=== PATIENT | male | born 1990 | race Caucasian/White ===

== ENCOUNTER → 2020-12-15 | Outpatient (REF) | payer OTHER ==
[2020-12-15 14:07] LABS: ALBUMIN 4.5 GM/DL (3.2-5.2); ALT/SGPT 21 U/L (12-78); BILIRUBIN,TOTAL 0.5 MG/DL (0.2-1.0); BLOOD UREA NITROGEN 11 MG/DL (7-18); CALCIUM LEVEL 9.8 MG/DL (8.5-10.1); CARBON DIOXIDE LEVEL 27 MEQ/L (21-32); CHLORIDE LEVEL 105 MEQ/L (98-107); CHOLESTEROL LEVEL 173 MG/DL (<200); CHOLESTEROL RISK RATIO 4.219 (<5); CREATININE FOR GFR 0.96 MG/DL (0.70-1.30); GLOMERULAR FILTRATION RATE > 60.0 (>60); GLUCOSE, FASTING 99 MG/DL (70-100); HDL CHOLESTEROL 41 MG/DL (>40); LDL CHOLESTEROL 115 MG/DL (<100); NON-HDL-C 132 MG/DL; POTASSIUM SERUM 4.4 MEQ/L (3.5-5.1); SODIUM LEVEL 137 MEQ/L (136-145); TOTAL PROTEIN 7.9 GM/DL (6.4-8.2); TRIGLYCERIDES LEVEL 86 MG/DL (<150)
[2020-12-15 14:24] LABS: HEPATITIS B SURFACE ANTIGEN NEGATIVE (NEGATIVE)
[2020-12-16 23:07] LABS: %CD4 Pos Lymphs 50.6 % (30.8-58.5); ABS Eosinophils 0.2 x10E3/uL (0.0-0.4); ABS Lymphs 1.5 x10E3/uL (0.7-3.1); ABS Monocytes 0.3 x10E3/uL (0.1-0.9); ABS Neutophils 1.7 x10E3/uL (1.4-7.0); Abs CD4 Helper 759 /uL (359-1519); Abs CD8 Suppres 510 /uL (109-897); CD4/CD8 Ratio 1.49 (0.92-3.72); Eosinophils 6 % (Not Estab.); HCT 42.6 % (37.5-51.0); HEPATITIS A IgG TOTAL Positive (Negative); HEPATITIS B CORE ANTIBODY IGG Negative (Negative); HGB 14.3 g/dL (13.0-17.7); HIV-1 RNA PCR QUANT 2 LC550285 <20 copies/mL (.); Immature Grans 0 % (Not Estab.); Lymphocytes 40 % (Not Estab.); MCH 31.2 pg (26.6-33.0); MCHC 33.6 g/dL (31.5-35.7); MCV 93 fL (79-97); Monocytes 9 % (Not Estab.); Neutrophils 45 % (Not Estab.); Platelets 281 x10E3/uL (150-450); RBC 4.58 x10E6/uL (4.14-5.80); RDW 11.9 % (11.6-15.4); WBC 3.8 x10E3/uL (3.4-10.8)
== END ==
LOC: M SFHCPLAZ 11:30
PROVIDERS: ATTEND Internal Medicine Infectious Disease
DX: B20 Human immunodeficiency virus [HIV] disease (principal); Z13.220 Encounter for screening for lipoid disorders
CPT/HCPCS: 36415; 80053; 80061; 86317; 86360; 86704; 86708; 86803; 87340; 87536; G0463

== ENCOUNTER → 2021-06-06 | Outpatient (CLI) | payer OTHER ==
[2021-06-06 16:21] LABS: ALBUMIN 4.3 GM/DL (3.2-5.2); ALT/SGPT 26 U/L (12-78); BILIRUBIN,TOTAL 0.4 MG/DL (0.2-1.0); BLOOD UREA NITROGEN 8 MG/DL (7-18); CALCIUM LEVEL 9.4 MG/DL (8.5-10.1); CARBON DIOXIDE LEVEL 30 MEQ/L (21-32); CHLORIDE LEVEL 104 MEQ/L (98-107); CREATININE FOR GFR 1.21 MG/DL (0.70-1.30); GLOMERULAR FILTRATION RATE > 60.0 (>60); GLUCOSE, FASTING 127 MG/DL (70-100); POTASSIUM SERUM 4.1 MEQ/L (3.5-5.1); SODIUM LEVEL 140 MEQ/L (136-145); TOTAL PROTEIN 7.9 GM/DL (6.4-8.2)
[2021-06-08 17:07] LABS: % CD8 Pos Lymph 34.7 % (12.0-35.5); %CD4 Pos Lymphs 52.4 % (30.8-58.5); ABS Eosinophils 0.2 x10E3/uL (0.0-0.4); ABS Lymphs 1.8 x10E3/uL (0.7-3.1); ABS Monocytes 0.4 x10E3/uL (0.1-0.9); ABS Neutophils 3.3 x10E3/uL (1.4-7.0); Abs CD4 Helper 943 /uL (359-1519); Abs CD8 Suppres 625 /uL (109-897); CD4/CD8 Ratio 1.51 (0.92-3.72); Eosinophils 4 % (Not Estab.); HCT 43.6 % (37.5-51.0); HGB 14.2 g/dL (13.0-17.7); HIV-1 RNA PCR QUANT 2 LC550285 <20 copies/mL (.); Immature Grans 0 % (Not Estab.); Lymphocytes 32 % (Not Estab.); MCH 31.6 pg (26.6-33.0); MCHC 32.6 g/dL (31.5-35.7); MCV 97 fL (79-97); Monocytes 6 % (Not Estab.); Neutrophils 58 % (Not Estab.); Platelets 321 x10E3/uL (150-450); RDW 12.1 % (11.6-15.4); WBC 5.8 x10E3/uL (3.4-10.8)
== END ==
LOC: M PLALAB 13:57
PROVIDERS: ATTEND Internal Medicine Infectious Disease
DX: B20 Human immunodeficiency virus [HIV] disease (principal)
CPT/HCPCS: 36415; 80053; 86360; 86780; 87536; 90471; 90682; G0463

== ENCOUNTER → 2022-01-08 | Outpatient (CLI) | payer OTHER ==
[2022-01-08 14:27] LABS: ALT/SGPT 13 U/L (12-78); BILIRUBIN,TOTAL 0.3 MG/DL (0.2-1.0); BLOOD UREA NITROGEN 13 MG/DL (7-18); CALCIUM LEVEL 9.2 MG/DL (8.5-10.1); CARBON DIOXIDE LEVEL 29 MEQ/L (21-32); CHLORIDE LEVEL 104 MEQ/L (98-107); CHOLESTEROL LEVEL 180 MG/DL (<200); CREATININE FOR GFR 0.92 MG/DL (0.70-1.30); GLOMERULAR FILTRATION RATE > 60.0 (>60); GLUCOSE, FASTING 100 MG/DL (70-100); HDL CHOLESTEROL 50 MG/DL (>40); LDL CHOLESTEROL 114 MG/DL (<100); NON-HDL-C 130 MG/DL; POTASSIUM SERUM 4.6 MEQ/L (3.5-5.1); SODIUM LEVEL 139 MEQ/L (136-145); TOTAL PROTEIN 7.2 GM/DL (6.4-8.2); TRIGLYCERIDES LEVEL 78 MG/DL (<150)
[2022-01-10 15:08] LABS: % CD8 Pos Lymph 34.5 % (12.0-35.5); %CD4 Pos Lymphs 52.1 % (30.8-58.5); ABS Eosinophils 0.2 x10E3/uL (0.0-0.4); ABS Lymphs 1.9 x10E3/uL (0.7-3.1); ABS Monocytes 0.4 x10E3/uL (0.1-0.9); ABS Neutophils 2.3 x10E3/uL (1.4-7.0); Abs CD4 Helper 990 /uL (359-1519); Abs CD8 Suppres 656 /uL (109-897); CD4/CD8 Ratio 1.51 (0.92-3.72); Eosinophils 4 % (Not Estab.); HCT 41.2 % (37.5-51.0); HGB 13.9 g/dL (13.0-17.7); HIV-1 RNA PCR QUANT 2 LC550285 <20 copies/mL (.); Immature Grans 0 % (Not Estab.); Lymphocytes 40 % (Not Estab.); MCH 32.3 pg (26.6-33.0); MCHC 33.7 g/dL (31.5-35.7); MCV 96 fL (79-97); Monocytes 8 % (Not Estab.); Neutrophils 48 % (Not Estab.); Platelets 263 x10E3/uL (150-450); RBC 4.31 x10E6/uL (4.14-5.80); RDW 11.9 % (11.6-15.4); WBC 4.8 x10E3/uL (3.4-10.8)
== END ==
LOC: M PLALAB 10:33
PROVIDERS: ATTEND Internal Medicine Infectious Disease
DX: B20 Human immunodeficiency virus [HIV] disease (principal); Z13.220 Encounter for screening for lipoid disorders
CPT/HCPCS: 36415; 80053; 80061; 84443; 86360; 87536; G0463